=== PATIENT | female | born 1935 | race Native Hawaiian/Other Pacific Islander ===

== ENCOUNTER 2017-02-12 09:12 | Outpatient (CLI) | payer OTHER, BC | END 2017-02-12 10:30 | disposition home or self-care (01) | LOC: US 09:12 | DX: N39.0 Urinary tract infection, site not specified (principal) ==

== ENCOUNTER 2017-12-17 09:18 | Outpatient (CLI) | payer OTHER, BC | END 2017-12-17 09:36 | disposition short-term general hospital (02) | LOC: AMB 09:18 | DX: R07.89 Other chest pain (principal) | CPT/HCPCS: A0425; A0427 ==

== ENCOUNTER 2018-01-31 09:34 | Outpatient (CLI) | payer OTHER, BC | END 2018-01-31 19:24 | disposition home or self-care (01) | LOC: LABW 09:34 | DX: Z79.01 Long term (current) use of anticoagulants (principal); Z51.81 Encounter for therapeutic drug level monitoring | CPT/HCPCS: 36415; 85610 ==

== ENCOUNTER 2018-10-03 12:00 | Outpatient (CLI) | payer OTHER, BC | END 2018-10-03 22:58 | disposition home or self-care (01) | LOC: RAD 12:00 | DX: M25.562 Pain in left knee (principal) ==

== ENCOUNTER 2019-01-29 12:11 | Outpatient (CLI) | payer OTHER, BC | END 2019-01-29 19:19 | disposition home or self-care (01) | LOC: LAB 12:11 | DX: R05 Cough (principal) | CPT/HCPCS: 87070; 87205 ==